=== PATIENT | male | born 1950 | race African-American/Black ===

== ENCOUNTER 2017-04-08 00:49 | Inpatient (IN) | payer MEDICARE ==
[2017-04-08] MEDS ORDERED: Cyclobenzaprine TAB* 10 MG PO ONE (01:27)
[2017-04-08] MEDS ORDERED: Aspirin TAB* 325 MG PO ONE (01:27)
[2017-04-08 02:20] LABS: Hematocrit 40 % (42-52); Mean Corpuscular HGB Conc 33 g/dl (31-36); Mean Corpuscular Hemoglobin 29 pg (27-31); Mean Corpuscular Volume 89 fL (80-94); Mean Platelet Volume 9 um3 (7.4-10.4); Red Blood Count 4.46 10^6/ul (4.0-5.4); Red Cell Distribution Width 14 % (10.5-15); White Blood Count 10.6 10^3/ul (3.5-10.8)
[2017-04-08 02:33] LABS: Albumin 3.9 g/dL (3.2-5.2); BUN/Creatinine Ratio 11.6 (8-20); Calcium 9.5 mg/dL (8.6-10.3); EGFR Non-African American 39.6 (>60); Globulin 3.4 g/dL (2-4); Potassium 3.9 mmol/L (3.5-5.0); Total Bilirubin 0.7 mg/dL (0.2-1.0); Total Protein 7.3 g/dL (6.4-8.9)
[2017-04-08 02:39] LABS: Troponin I 1.44 ng/mL (<0.04)
[2017-04-08] MEDS ORDERED: Heparin DRIP 25,000 UNITS(*) 25,000 UNITS/500 ML BAG IVPB SCH (02:53)
[2017-04-08] MEDS: Nitroglycerin TAB 0.4 MG* 0.4 MG TAB SL ONE ×3 (02:58→03:25)
[2017-04-08] MEDS ORDERED: Heparin VIAL(*) 5000 UNITS/ML VIAL (FIVE THOUSAND) IV SCH ×2 (03:00)
[2017-04-08] MEDS ORDERED: Nitroglycerin 2% OINT* 1 GM PAK TOPICAL ONE (03:03)
[2017-04-08] MEDS ORDERED: Heparin 2 UNITS/ML IVPREMIX* 2,000 ML IV ONE (03:17)
[2017-04-08] MEDS ORDERED: nitroGLYCERIN DRIP* 250 ML ONE (03:17)
[2017-04-08] MEDS ORDERED: Lidocaine 1% INJ* 10 MG/ML 30 ML SDV ONE (03:17)
[2017-04-08] MEDS ORDERED: fentaNYL* 50 MCG/ML 2 ML VIAL (100 MCG VIAL) ONE (03:17)
[2017-04-08] MEDS ORDERED: Midazolam* 1 MG/ML 5 ML VIAL (5 MG) ONE (03:17)
[2017-04-08] MEDS ORDERED: Iohexol 350 (CONTRAST) 200 ML MDV IV ONE (03:17)
[2017-04-08] MEDS ORDERED: Iodixanol* (CONTRAST) 320 MG/ML 100 ML SDV ONE (03:22)
[2017-04-08] MEDS ORDERED: Heparin(*) 1000 UNIT/ML 10 ML VIAL CATH LAB IV ONE (03:27)
[2017-04-08] MEDS ORDERED: VERAPAMIL 2.5 MG/ML 4 ML VIAL ONE (03:27)
[2017-04-08] MEDS ORDERED: Morphine INJ* 4 MG/ML 1 ML CARPUJECT IV ONE (03:33)
[2017-04-08] MEDS ORDERED: Acetaminophen TAB* 325 MG PO PRN (05:58)
[2017-04-08] MEDS ORDERED: Nitroglycerin TAB 0.4 MG* 0.4 MG TAB SL PRN (05:58)
[2017-04-08] MEDS ORDERED: oxyCODONE/Acetamin 5/325 MG* TAB PO PRN (05:58)
[2017-04-08] MEDS ORDERED: NS 0.9% 1000 ML* 1,000 ML IV SCH (06:00)
[2017-04-08] MEDS ORDERED: NS 0.9% 1000 ML* 1,000 ML IV PRN (06:13)
[2017-04-08 06:15] VITALS: BP 143/79
[2017-04-08] MEDS ORDERED: Metoprolol Tartrate TAB* 25 MG PO SCH (07:00)
[2017-04-08] MEDS ORDERED: glipiZIDE TAB.XL* 5 MG PO SCH (09:00)
[2017-04-08] MEDS ORDERED: Aspirin Low Dose CHEW TAB* 81 MG PO SCH (09:00)
--- NOTE | 2017-04-08 09:01 | RAD ---
Indication: Thoracic and LEFT shoulder pain. Comparison: July 29, 2015 Technique: Upright AP 0145 hours Report: Borderline inspiration with resulting mild crowding of the pulmonary markings. Prominent first costochondral calcifications noted. No alveolar consolidation, focal pulmonary lesion, pleural effusion, pneumothorax. Accounting for portable AP technique the heart, pulmonary vasculature, and mediastinal contours are unremarkable. Negative for free air beneath the diaphragm. IMPRESSION: No evidence for acute intrathoracic disease.
--- NOTE | 2017-04-08 09:03 | TRS ---
CONTINUATION ADDENDUM INCLUDED ON THIS REPORT CC: Dr. Moore; Dr. Ramos Suazo; Dr. Laura Ortega * HISTORY AND PHYSICAL AND TRANSFER SUMMARY: DATE OF ADMISSION AND TRANSFER: 04/08/17 PRIMARY CARE PHYSICIAN: Dr. Moore. AMBULATORY SERVICES REPRESENTATIVE: Dr. Ramos Suazo. VASCULAR SURGEON: Dr. Laura Ortega. DIAGNOSES: 1. Inferior wall non-ST elevation infarct. 2. Peripheral arterial disease, status post left pop-tib bypass. 3. Diabetes type 2. 4. Obesity. 5. Hypertension. 6. Remote history of cerebrovascular accident. 7. Obstructive sleep apnea. 8. Dyslipidemia. CONDITION ON TRANSFER: Stable. PROCEDURE: Diagnostic cardiac cath by Dr. Willett, right radial access with ultrasound guidance, not utilized because of heavy calcification and poor wire movement. Left common femoral access, bilateral selective coronary cineangiography, left heart catheterization, LV gram not done because of CKD stage 3. TRANSFER MEDICATIONS: 1. IV heparin 1100 units per hour. 2. IV nitro at 15 mcg per minute. And continued preadmission home medications which include: 1. Glipizide XL 20 mg daily. 2. Metformin 500 mg daily is on hold. 3. Zocor 20 mg daily has been changed to Lipitor 80 mg daily. 4. Aspirin 81 mg daily. 5. Lopressor 25 mg q.6. DISPOSITION: He is being transferred to Dr. Santillan at [facility], Cardiothoracic Surgery via ALS ambulance. HISTORY: A 67-year-old male with remote cardiac cath in 2002 at [place], report not available. He had a catheterization here on 05/28/07 for inferior wall ischemia on imaging, per report that revealed relatively small vessel disease, access was right common femoral. Normal LV function with EF of 55%, the diagonal was described as having 60% stenosis, circumflex was described as codominant with 80% distal stenosis, the marginal had 80% stenosis at a bifurcation, the circumflex PDA was described as having severe disease, but was very small. The RCA was described as unremarkable. We are not able to access those images on the AXA seismograph observer. He had a RAYNA scan in July 2015, which reported a small inferolateral basilar mixed defect with normal LV systolic function. He has been doing well without symptoms at followup with Dr. Suazo most recently in January. He apparently is noncompliant with his diabetic diet. Approximately at 2000 hours yesterday, he had the onset of left shoulder pain radiating into his left arm and left side of his neck, which had many features of musculoskeletal discomfort. He presented to the ER, EKG at 0211 hours had a wandering baseline, with less than [address] elevation. There were some reciprocal changes in I and aVL. When troponin came back elevated at 1.44 repeat EKG at 0244 hours showed slightly more evident inferior and lateral lead V6 J point and ST elevation was still less than 1 mm not meeting criteria for ST elevation infarct. He was still symptomatic at the time builder's labourer was called. When I saw him in the ER he was still complaining of moderate left shoulder discomfort, was not in distress. He has had previous left popliteal tibial bypass by Dr. Boyer at [facility], last SERGIO is this December. The right toe brachial index was 0.28, the left toe brachial index was 0.3 with a left posterior tibial SERGIO normal at 1.06. He does not claudicate. He has had some peripheral edema, denies heart failure symptoms, palpitations or syncope. PAST MEDICAL HISTORY: 1. PAD as above. 2. Diabetes type 2. 3. Hypertension. 4. Remote CVA in 2005 according to his records involving the cerebellum. 5. Obstructive sleep apnea. 6. Apparently dietary noncompliance. PREHOSPITAL MEDICATIONS: There is some conflict between the office record from January and the ER record. Per Dr. Suazo's office note, he was at that time in January on: 1. Metoprolol succinate 25 mg daily. 2. Aspirin 81 mg daily. 3. Enalapril 2.5 mg daily. 4. Glucotrol XL 10 mg 2 q.a.m. 5. Metformin 500 mg daily. 6. Lipitor 40 mg daily. ER admission med list does not mention the aspirin or Toprol-XL and lists Keflex 500 mg q.i.d. as well as collagenase ointment. ALLERGIES: None, although there is a question of SHELLFISH allergy in the past and he was premedicated for his 2006 cath without allergic reaction. FAMILY HISTORY: Positive for premature coronary disease with a brother dying suddenly in his 50s. SOCIAL HISTORY: He is a nonsmoker. PHYSICAL EXAMINATION: GENERAL: He was not in distress, complaining of moderate left shoulder discomfort. CONTINUATION ADDENDUM: PHYSICAL EXAMINATION: Vital Signs: Presenting BP 152/65, heart rate 60s to 80s sinus rhythm. He had a few coarse rhonchi on the right side, no rales, no wheezing. Neck: Carotids palpable. JVD normal. HEENT: Unremarkable without xanthelasma, scleral injection, jaundice. EOMs normal. Cranial nerves grossly intact. Cardiac Exam: [place] and RV not palpable, normal S1, S2, no audible gallop, murmur, or rub. Abdomen: Obese, nontender. Normal bowel sounds. Aorta not palpable. Liver not palpable. No bruits. Right radial pulse palpable, but diminished. Right brachial normal. Blood pressure right and left arms equal. Right femoral pulse not palpable. Left femoral pulse palpable. No bruit. Pedal pulses not palpable. He has a vein harvest incision , left leg over the greater saphenous. He has mild edema bilaterally. He has had previous toe amputations, left foot. Pedal pulses are not palpable. Neuro : Grossly intact. Psych: He is oriented and appropriate. DIAGNOSTIC STUDIES/LAB DATA: CBC: Hemoglobin 13.2, hematocrit 41, normal platelet count. BMP: Normal potassium at 3.9, creatinine 1.72 with most recent in October of 1.48. Glucose 189. Last hemoglobin A1c on November 11 was 7.8. His LFTs are normal. First troponin elevated at 1.44. Lipids in October; total cholesterol 152, LDL 71, HDL 69.4, triglycerides 56, presumably on his current dose of Lipitor. EKG as above. Chest x-ray, portable film by my review, no acute infiltrate or heart failure. IMPRESSION: Inferior wall non-ST elevation infarct. He is known to have branch disease of the diagonal marginal and distal circumflex by prior cath. He now presents with an inferior non-ST elevation infarct, not meeting criteria for ST elevation infarct. Nuclear imaging a year and a half ago showed an infrabasilar mixed defect. I discussed with him that depending on the size of his distal vessels, we may or may not be able to revascularize. We discussed catheterization, procedure risks. I will attempt a right radial access after ultrasound evaluation. If not feasible, we will utilize the left common femoral. Because of his renal insufficiency, we will minimize contrast. HOSPITAL COURSE: He underwent a cardiac cath. I was easily able to enter the right radial artery with ultrasound guidance, the artery was 1.7 mm to 2 mm in diameter, but very heavily calcified. Even though I had pulsatile flow, it was not possible to feed the 0.021 wire without resistance, fairly typical for heavily calcified radial arteries. The access site was therefore abandoned, manual pressure was held for 5 minutes. Reverse Barbeau postprocedure was still A. Access was then left common femoral with a 6-Irish sheath. Bilateral selective coronary cineangiography and left heart catheterization were performed. His left main is normal, his LAD has proximal 70% to 80% stenosis, the fairly small sized diagonal had 60% stenosis. Imaging was somewhat suboptimal because of his truncal obesity and limitation of contrast to 5 cc per injection. His circumflex has a first marginal, which had proximal 90% stenosis at a bifurcation point, the lower side branch is essentially occluded. After the marginal, the mid circumflex has an 80% to 90% stenosis before supplying the distal circumflex, which consists of a trifurcated small posterolateral. I do not see a clear circumflex PDA. The RCA is co-dominant, the PDA had proximal 80% stenosis. There was no aortic valve gradient on pullback, LVEDP was approximately 20. LV gram was not performed to minimize contrast load. With IV nitroglycerin and resumption of IV heparin, he was pain free. A repeat EKG in the builder's labourer showed resolution of the slight inferolateral ST elevation. The sheath was secured in his left common femoral as he is on heparin, arrangements were made to transfer him to [facility] at his choice for evaluation for bypass grafting for three-vessel disease with diffuse lengthy and bifurcation disease with three-vessel involvement. [id number]/[facility] #: [id number]/[facility]PS #: [id number] [facility]
--- NOTE | 2017-04-08 12:02 | TRS ---
HISTORY AND PHYSICAL AND TRANSFER SUMMARY:* ADDENDUM: PHYSICAL EXAMINATION: Vital Signs: Presenting BP 152/65, heart rate 60s to 80s sinus rhythm. He had a few coarse rhonchi on the right side, no rales, no wheezing. Neck: Carotids palpable. JVD normal. HEENT: Unremarkable without xanthelasma, scleral injection, jaundice. EOMs normal. Cranial nerves grossly intact. Cardiac Exam: [place] and RV not palpable, normal S1, S2, no audible gallop, murmur, or rub. Abdomen: Obese, nontender. Normal bowel sounds. Aorta not palpable. Liver not palpable. No bruits. Right radial pulse palpable, but diminished. Right brachial normal. Blood pressure right and left arms equal. Right femoral pulse not palpable. Left femoral pulse palpable. No bruit. Pedal pulses not palpable. He has a vein harvest incision , left leg over the greater saphenous. He has mild edema bilaterally. He has had previous toe amputations, left foot. Pedal pulses are not palpable. Neuro : Grossly intact. Psych: He is oriented and appropriate. DIAGNOSTIC STUDIES/LAB DATA: CBC: Hemoglobin 13.2, hematocrit 41, normal platelet count. BMP: Normal potassium at 3.9, creatinine 1.72 with most recent in October of 1.48. Glucose 189. Last hemoglobin A1c on November 11 was 7.8. His LFTs are normal. First troponin elevated at 1.44. Lipids in October; total cholesterol 152, LDL 71, HDL 69.4, triglycerides 56, presumably on his current dose of Lipitor. EKG as above. Chest x-ray, portable film by my review, no acute infiltrate or heart failure. IMPRESSION: Inferior wall non-ST elevation infarct. He is known to have branch disease of the diagonal marginal and distal circumflex by prior cath. He now presents with an inferior non-ST elevation infarct, not meeting criteria for ST elevation infarct. Nuclear imaging a year and a half ago showed an infrabasilar mixed defect. I discussed with him that depending on the size of his distal vessels, we may or may not be able to revascularize. We discussed catheterization, procedure risks. I will attempt a right radial access after ultrasound evaluation. If not feasible, we will utilize the left common femoral. Because of his renal insufficiency, we will minimize contrast. HOSPITAL COURSE: He underwent a cardiac cath. I was easily able to enter the right radial artery with ultrasound guidance, the artery was 1.7 mm to 2 mm in diameter, but very heavily calcified. Even though I had pulsatile flow, it was not possible to feed the 0.021 wire without resistance, fairly typical for heavily calcified radial arteries. The access site was therefore abandoned, manual pressure was held for 5 minutes. Reverse Barbeau postprocedure was still A. Access was then left common femoral with a 6-Mongolian sheath. Bilateral selective coronary cineangiography and left heart catheterization were performed. His left main is normal, his LAD has proximal 70% to 80% stenosis, the fairly small sized diagonal had 60% stenosis. Imaging was somewhat suboptimal because of his truncal obesity and limitation of contrast to 5 cc per injection. His circumflex has a first marginal, which had proximal 90% stenosis at a bifurcation point, the lower side branch is essentially occluded. After the marginal, the mid circumflex has an 80% to 90% stenosis before supplying the distal circumflex, which consists of a trifurcated small posterolateral. I do not see a clear circumflex PDA. The RCA is co-dominant, the PDA had proximal 80% stenosis. There was no aortic valve gradient on pullback, LVEDP was approximately 20. LV gram was not performed to minimize contrast load. With IV nitroglycerin and resumption of IV heparin, he was pain free. A repeat EKG in the laborer shaft sinking showed resolution of the slight inferolateral ST elevation. The sheath was secured in his left common femoral as he is on heparin, arrangements were made to transfer him to [facility] at his choice for evaluation for bypass grafting for three-vessel disease with diffuse lengthy and bifurcation disease with three-vessel involvement. [id number]/[facility] #: [id number] [facility]
[2017-04-08] MEDS ORDERED: Atorvastatin* 80 MG TAB PO SCH (17:00)
--- NOTE | 2017-04-11 03:17 | CATH ---
CC: Dr. Moore; Dr. Ramos Suazo; Dr. Santillan at [place]; Dr. Ortega at [facility] * CATHETERIZATION REPORT: DATE OF PROCEDURE: 04/08/17 - ROOM #[id number] PRIMARY CARE PHYSICIAN: Dr. Moore SENIOR INFORMATICA ETL DEVELOPER: Dr. Ramos Suazo PROCEDURES: Left common femoral artery access, bilateral selective coronary cineangiography, left heart catheterization. Right radial artery access with ultrasound, not utilized. HISTORY: A 67-year-old male with prior cath in 2006 for inferior wall ischemia reported, right common femoral artery access, 60% diagonal stenosis, codominant circumflex with 80% distal stenosis, 80% marginal stenosis, and severe circumflex PDA stenosis. LVEF 55%, he was treated medically. The RCA was at that time reported as normal. July 2015, RAYNA scan showed a basilar inferolateral mixed defect with normal LV function. He has had left popliteal to tibial bypass by Dr. Ortega. He presented with an inferior wall ST elevation infarct, was brought to the dental laboratory worker emergently. He had a palpable left femoral pulse, no palpable right femoral pulse. ACCESS: Right radial artery with ultrasound guidance, demonstrated a radial artery 1.7 mm to 2 mm in diameter, but with heavy circumferential intimal calcification. He was easily entered with a micropuncture needle, but the microwire would not easily pass up the radial even though there was brisk pulsatile arterial flow, likely due to resistance from heavy calcification. The right radial was therefore abandoned, 5 minutes of manual compression was held. Subsequent reverse Barbeau was A. The left femoral artery was then used for access after local anesthesia. SHEATH: 6F. MEDICATIONS: 1. Subcu lidocaine. 2. IV Versed. 3. IV fentanyl. 4. IV Solu-Medrol. 5. Benadryl for questionable history of CONTRAST allergy with premedication at cath in 2006. 6. IV nitroglycerin 15 mcg per minute. 7. Heparin 1100 units per hour resumed post cath after sheath was secured. DIAGNOSTIC CATHETERS: 6FL4, 6FR4, 6FL3.5. HEMODYNAMICS: Initial BP 156/79, LV 149/16-17, no aortic valve gradient on pullback. ANGIOGRAPHY: Left common femoral artery: Sheath entry in segment 2, there is no stenosis. Left main: The left main is short, has no stenosis. LAD: The LAD is heavily calcified, has a proximal near ostial 60% stenosis, distal LAD has scattered nonobstructive plaquing. There is a mid diagonal, which has 60 or so percent stenosis. Contrast injections were limited to 5 cc because of his CKD stage 3. Circumflex: The circumflex is moderate, supplies a moderate first marginal which has an 80% to 90% stenosis at a bifurcation, the lower side branch is occluded, the upper side branch has an 80% ostial stenosis. The lower branch feels via left-to- left collaterals. The AV groove circumflex continuation has an 80% to 90% stenosis, the distal circumflex consists of 3 very small posterolaterals, I do not see a discrete circumflex PDA. RCA: The RCA is moderate, dominant or codominant, the PDA has proximal 80% stenosis. CONCLUSION: Three-vessel disease with bifurcation disease, diffuse disease. With medical management in the dental laboratory worker, he became pain free, ST elevation resolved on 12-lead EKG. Sheath was secured, he was transferred to [facility] for evaluation for bypass grafting, on IV nitroglycerin and IV heparin, hemodynamically stable and pain free. [id number]/[facility] #: [id number] [facility]
== END 2017-04-08 06:11 | disposition short-term general hospital (02) | DRG 282 ==
LOC: ED 00:49 → CHICATH 03:39 → ICU 05:20
PROVIDERS: ADMIT Internal Medicine Cardiovascular Disease; ATTEND Internal Medicine Cardiovascular Disease
PROC: B211YZZ Fluoroscopy of Multiple Coronary Arteries using Other Contrast (ICD-10-PCS; 2017-04-08)
PROC: 4A023N7 Measurement of Cardiac Sampling and Pressure, Left Heart, Percutaneous Approach (ICD-10-PCS; principal; 2017-04-08 07:15)
DX: I21.4 Non-ST elevation (NSTEMI) myocardial infarction (principal); E11.22 Type 2 diabetes mellitus with diabetic chronic kidney disease; I13.10 Hypertensive heart and chronic kidney disease without heart failure, with stage 1 through stage 4 chronic kidney disease, or unspecified chronic kidney disease; N18.3 Chronic kidney disease, stage 3 (moderate); E66.9 Obesity, unspecified; G47.33 Obstructive sleep apnea (adult) (pediatric); E78.5 Hyperlipidemia, unspecified; Z68.36 Body mass index [BMI] 36.0-36.9, adult; Z79.84 Long term (current) use of oral hypoglycemic drugs; Z79.82 Long term (current) use of aspirin; Z79.899 Other long term (current) drug therapy; Z82.49 Family history of ischemic heart disease and other diseases of the circulatory system
CPT/HCPCS: 36415; 71010; 80053; 84484; 85025; 85730; 93005; 99156; 99157; A9270-GY; C1887; J1644; J2001; J2250; J3010

== ENCOUNTER 2019-08-25 09:19 | Emergency (ER) | payer MEDICARE ==
--- OUTSIDE RECORDS SUMMARY | 2019-08-25 09:26 | XMS REPORT | Continuity of Care Document ---
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 Onset: 08/19/2014 Diabetic neuropathy Onset: 07/07/2014 Social History Type Date Description Comments Sex Unknown Allergies, Adverse Reactions, Alerts Description No Known Drug Allergies Medications Active Medications SIG Qnty Indications Ordering Date Provider Enalapril Maleate take 1 tablet by 90tabs I10 Micki Villalta, 08/07/2019 5mg mouth daily MD Tablets Clopidogrel Bisulfate Take One Tablet 30tabs Micki Villalta, 07/11/2019 By Mouth Every 75mg Tablets Day Humulin 70/30 Kwikpen inject 10units Unknown 11/01/2018 Subcutaneous; 25 (70-30)100Unit/ML units am and 10 Supn units pm Metoprolol Tartrate 1 twice daily 180tabs MIL Moore 08/02/2018 oral 25mg Tablets Atorvastatin Calcium Take One Tablet 30tabs Micki Villalta, 05/01/2018 By Mouth Every 80mg Tablets Day Metformin HCL ER 2 daily oral 180tabs Pardeep Jauregui MD 04/10/2018 750mg Tablets ER 24HR Glipizide XL Oral; Take Two 180tabs Unknown 10/15/2017 10mg Tablets By Mouth Tablets ER 24HR Once Daily In The Morning Aspirin Adult Low 1 daily Oral Unknown 04/18/[address] Andres Use as Directed 100units Unknown 10/26/2010 Misc External History Medications Clopidogrel Bisulfate Oral; Take One 30tabs Unknown 03/10/2019 - 2018 75mg Tablet By Mouth Tablets Every Day Immunizations CPT Code Status Date Vaccine Lot # [id number] Given 07/19/2015 Tdap - Boostrix/Adacel [id number] Refused 04/03/2018 Influenza Virus Vaccine, Quadrivalent, Split, Im Use 0.25ML [id number] Refused 09/19/2017 Hep B 11-15yr, Recombivax 1.0ml dose only [id number] Refused 07/07/2014 Pneumovax - for >=2years - PPSV23 [id number] Refused 07/07/2014 Influenza Virus Vaccine, Quadrivalent, Split, Im Use 0.25ML [id number] Refused 07/07/2014 Prevnar 13 [id number] Refused 05/30/2013 Influenza Virus Vaccine, Quadrivalent, Split, Im Use 0.25ML 89998 Refused 05/17/2012 Influenza Virus Vaccine, Quadrivalent, Split, Im Use 0.25ML [id number] Refused 01/02/2012 Influenza Virus Vaccine, Quadrivalent, Split, Im Use 0.25ML Vital Signs Date Vital Result Comment 08/07/2019 8:54am BP Systolic 152 mmHg BP Diastolic 68 mmHg BP Systolic Recheck 142 mmHg BP Diastolic Recheck 88 mmHg Weight 219.00 lb Heart Rate 58 /min Body Temperature 97.2 F O2 % BldC Oximetry 99 % 05/07/2019 9:33am BP Systolic 138 mmHg BP Diastolic 64 mmHg Height 69 inches 5'9" Weight 222.00 lb Heart Rate 68 /min Body Temperature 98.2 F O2 % BldC Oximetry 98 % BMI (Body Mass Index) 32.8 kg/m2 Right Visual Acuity Distance 20/30 Left Visual Acuity Distance 20/40 Both Visual Acuity Distance 20/30 Results Test Acquired Date Facility Test Result H/L Range Note CBC Auto 05/07/2019 [facility] White Blood 6.3 10^3/uL Normal 3.5-10.[address] [place], [place] [id number] [phone] Red Blood Count 4.54 10^6/uL Normal 4.18-5.48 Hemoglobin 13.6 g/dL Low 14.0-18.0 Hematocrit 40 % Low 42-52 Mean Corpuscular Volume 89 fL Normal 80-94 Mean Corpuscular Hemoglobin 30 pg Normal 27-31 Mean Corpuscular HGB Conc 34 g/dL Normal 31-36 Red Cell Distribution Width 14 % Normal 10-15 Platelet Count 161 10^3/uL Normal 150-450 Mean Platelet Volume 9.8 fL Normal 7.4-10.4 Abs Neutrophils 3.2 10^3/uL Normal 1.5-7.7 Abs Lymphocytes 2.4 10^3/uL Normal 1.0-4.8 Abs Monocytes 0.5 10^3/uL Normal 0-0.8 Abs Eosinophils 0.2 10^3/uL Normal 0-0.6 Abs Basophils 0.0 10^3/uL Normal 0-0.2 Abs Nucleated RBC 0.0 10^3/uL Granulocyte % 51.7 % Lymphocyte % 37.6 % Monocyte % 8.0 % Eosinophil % 2.5 % Basophil % 0.2 % Nucleated Red Blood Cells % 0.2 Lipid Profile 05/07/2019 [facility] Triglycerides 99 mg/dL 1 (Trig/Chol/HDL) [address] [place] [address] [phone] Cholesterol 137 mg/dL 2 HDL Cholesterol 61.6 mg/dL 3 LDL Cholesterol 56 mg/dL 4 Comp Metabolic 05/07/2019 [facility] Sodium 140 mmol/L Normal 135-[address] [place] [address] [phone] Potassium 4.1 mmol/L Normal 3.5-5.0 Chloride 104 mmol/L Normal 101-111 Co2 Carbon Dioxide 29 mmol/L Normal 22-32 Anion Gap 7 mmol/L Normal 2-11 Glucose 127 mg/dL High 70-100 Blood Urea Nitrogen 19 mg/dL Normal 6-24 Creatinine 1.60 mg/dL High 0.67-1.17 BUN/Creatinine Ratio 11.9 Normal 8-20 Calcium 9.4 mg/dL Normal 8.6-10.3 Total Protein 7.0 g/dL Normal 6.4-8.9 Albumin 3.9 g/dL Normal 3.2-5.2 Globulin 3.1 g/dL Normal 2-4 Albumin/Globulin Ratio 1.3 Normal 1-3 Total Bilirubin 0.60 mg/dL Normal 0.2-1.0 Alkaline Phosphatase 95 U/L Normal 34-104 Alt 22 U/L Normal 7-52 Ast 20 U/L Normal 13-39 Egfr Non- 42.8 >60 Egfr 51.8 >60 5 Laboratory test 05/07/2019 [facility] Hemoglobin A1c 8.9 % High 4.0-5.[address] ([facility] HGB) [place], [place] [id number] [phone] [facility] Urine 05/07/2019 [facility] Urine, 150 Microalbumin/Cre ( )- - Microalbumin at R Urine, Creatinine, Random 200 Microalb/CR Ratio 30 - 300 1 Desirable: <150 Borderline High: 150-199 High: 200-499 Very High: >500 2 Desirable: <200 Borderline High: 200-239 High: >239 3 Low: <40 Desirable: 40-60 High: >60 4 Desirable: <100 Near Optimal: 100-129 Borderline High: 130-159 High: 160-189 Very High: >189 5 Because ethnic data is not always readily available, this report includes an eGFR for both -Americans and non- Americans. The National Kidney Disease Education Program (NKDEP) does not endorse the use of the MDRD equation for patients that are not between the ages of 18 and 70, are , have extremes of body size, muscle mass, or nutritional status, or are non- or non-. According to the National Kidney Foundation, irrespective of diagnosis, the stage of the disease is based on the level of kidney function: Stage Description GFR(mL/min/1.73 m(2)) 1 Kidney damage with normal or decreased GFR 90 2 Kidney damage with mild decrease in GFR 60-89 3 Moderate decrease in GFR 30-59 4 Severe decrease in GFR 15-29 5 Kidney failure <15 (or dialysis) 6 Therapeutic target for the treatment of diabetes mellitus patients is <7% HBA1C, and in selective patients <6.0%. Please refer to [place] Diabetes Association diabetic care guidelines for further information. Procedures Date Code Description Status 05/07/2019 30657 Visual Screening Test Of Visual Acuity, Quantitative, Completed Bilateral Medical Devices Description No Information Available Encounters Type Date Location Provider Dx Diagnosis Office Visit 08/07/2019 [facility] Tony Villalta MD I10 Essential (primary ) 9:30a hypertension E11.9 Type 2 diabetes mellitus without complications Assessments Date Code Description Provider 08/07/2019 I10 Essential (primary) hypertension Micki Villalta MD 08/07/2019 E11.9 Type 2 diabetes mellitus without complications Micki Villalta MD 05/07/2019 Z68.32 Body mass index (BMI) 32.0-32.9, adult Micki Villalta MD 05/07/2019 I10 Essential (primary) hypertension Micki Villalta MD 05/07/2019 Z13.1 Encounter for screening for diabetes mellitus Micki Villalta MD 05/07/2019 Z13.220 Encounter for screening for lipoid disorders Micki Villalta MD 05/07/2019 Z00.00 Encounter for general adult medical examination Micki Villalta MD without abnormal findings 05/07/2019 Z01.00 Encounter for examination of eyes and vision Micki Villalta MD without abnormal findings 05/07/2019 Z13.31 Encounter for screening for depression Micki Villalta MD Plan of Treatment Future Appointment(s):11/06/2019 9:15 am - Micki Villalta MD at [facility] Main2019 - Micki Villalta MDI10 Essential (primary) hypertensionNew Medication: Enalapril Maleate 5 mg - take 1 tablet by mouth [id number] Type 2 diabetes mellitus without complications Functional Status Description No Information Available Mental Status Description No Information Available Referrals Description No Information Available
--- OUTSIDE RECORDS SUMMARY | 2019-08-25 09:26 | XMS REPORT | Summary of Care ---
:1950 Author Organization [facility] Address [address] [place] [address] Care Team Providers Name Role Phone Tami Moore MD Primary Care Provider Reason for Visit Reason Comments Follow-up Encounter Details Date Type Department Care Team Description 08/22/2019 Office Visit [facility], HOST artery disease) Department of Surgery, [facility] (Primary Dx) Division of Vascular [address] [facility] [place] [address] Endovascular Services [phone] [place] [address] Allergies Active Allergy Reactions Severity Noted Date Comments Mustard Seed Other (See Comments) 08/20/2015 Sick feeling documented as of this encounter (statuses as of 08/22/2019) Medications Medication Sig Dispensed Refills Start End Status Date Date glipiZIDE (GLUCOTROL) Take 10 mg by 0 Active 10 MG 24 hr mouth daily. tabletIndications: Indications: Type Type 2 Diabetes 2 Diabetes Mellitus enalapril (VASOTEC) Take 2.5 mg by 0 Active 2.5 MG mouth daily. tabletIndications: Indications: High Hypertension Blood Pressure aspirin 81 MG Take 81 mg by 0 Active tabletIndications: mouth daily. Acute Myocardial Indications: Infarction Heart Attack metformin (GLUCOPHAGE) Take 750 mg by 0 Active 500 MG mouth daily with tabletIndications: breakfast Type 2 Diabetes Mellitus atorvastatin (LIPITOR) Take 80 mg by 0 Active 80 MG mouth daily tabletIndications: cholesterol metoprolol (LOPRESSOR) Take 25 mg by 0 Active 25 MG mouth Two Times tabletIndications: Daily. Hypertension Indications: High Blood Pressure clopidogrel (PLAVIX) Take 75 mg by 0 Active 75 MG tablet mouth daily Insulin Glargine Inject into the 0 Active (BASAGLAR KWIKPEN SC) skin Glucose Blood In Vitro Accu-Chek Sandi Plus test strips 0 Active Strip TEST ONCE DAILY Insulin NPH Isophane & Novolin 70/30 U-100 Insulin 100 unit/mL subcutaneous suspension 0 Active Regular (70-30) 100 inject 20u at breakfast and 10u at supper or as directed up to 60u TDD. Dx E11.65, last visit 08/13/18 UNIT/ML Subcutaneous Suspension (NOVOLIN 70/30) hydroCHLOROthiazide 25 Take 25 mg by 0 04/12/20 Active MG Oral Tablet mouth 17 (HYDRODIURIL) Insulin NPH (Human) Humulin N NPH U-100 Insulin (isophane susp) 100 unit/mL subcutaneous 0 Active (Isophane) 100 UNIT/ML Inject 15 units every day by subcutaneous route in the morning. Subcutaneous Suspension (HUMULIN N) NovoLIN N ReliOn 100 INJECT 15 UNITS 0 07/24/19 Active UNIT/ML Subcutaneous SUBCUTANEOUSLY 20 Suspension ONCE DAILY IN THE MORNING Glucose Blood In Vitro Accu-Chek Sandi Plus test strips 0 Strip once daily dxe11.65 last appt 01/29/182019 (Duplicate) documented as of this encounter (statuses as of 08/22/2019) Active Problems Problem Noted Date PVD (peripheral vascular disease) 07/31/2016 h/o Hemorrhagic stroke -- 1998 08/21/2015 Sleep apnea 08/21/2015 Overview: no CPAP H/O: stroke 1995 with residual effects -- Left sided weakness 08/21/2015 Overview: left sided sl weakness PAD (peripheral artery disease) 08/21/2015 Diabetes mellitus type II, uncontrolled 07/27/2015 Hypertension 07/27/2015 Hyperlipidemia associated with type 2 diabetes mellitus 07/27/2015 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 07/22 documented as of this encounter (statuses as of 08/22/2019) Resolved Problems Problem Noted Date Resolved Date Atherosclerosis of [place] artery of left leg with ulceration 07/28/201512/06 documented as of this encounter (statuses as of 08/22/2019) Social History Tobacco Use Types Packs/Day Years Used Date Never Smoker Smokeless Tobacco: Never Used Alcohol Use Drinks/Week oz/Week Comments No 0 Standard drinks or equivalent 0.0 history Sex Assigned at Date Recorded Not on file Job Start Date Occupation Industry Not on file Not on file Not on file Travel History Travel Start Travel End No recent travel history available. documented as of this encounter Last Filed Vital Signs Vital Sign Reading Time Taken Comments Blood Pressure 147/74 08/22/2019 10:03 AM EST Pulse 62 08/22/2019 10:03 AM EST Temperature 36.7 08/22/2019 10:03 AM EST C (98 F) Respiratory Rate 18 08/22/2019 10:03 AM EST Oxygen Saturation 99% 08/22/2019 10:03 AM EST Inhaled Oxygen Concentration - - Weight 99.3 kg (219 lb) 08/22/2019 10:03 AM EST Height 175.3 cm (5' 9") 08/22/2019 10:03 AM EST Body Mass Index 32.34 08/22/2019 10:03 AM EST documented in this encounter Progress Notes Anel Ribeiro, HOST - 08/22/2019 10:00 AM EST Reason for Visit: 1 year follow up HPI: Geovanni Bal is a 69 y.o.male very well know to our service with a history of DM and PAD associated with multiple vascular interventions. He is s/p left below -knee popliteal to dorsalis pedis artery bypass with reverse saphenous vein 08/20; s/p debridement of the left 3rd toe and 5th toe amputation with resection of the plantar skin under the 5th metatarsal head on 08/23/15; s/p left 3rd toe partial amputation, left 5th metatarsal bone resection with closure on 10/18/15; s/p left 3rd toe amputation on 02/11/16. On 07/31/16 he underwent an angiogram for elevated velocities within his graft which showed an occluded bypass graft. He was asymptomatic at the time so no further intervention was required. He follows up today for yearly surveillance as part of the [facility] CLI Trial. He reports that he is doing well. He states he fell on some ice yesterday and he is a little sore. He did not go to the [facility]. He denies hitting his head. She denies chest pain, back pain or abdominal pain. In regard to his lower extremties he feels he can walk as far as he needs to without having to stop and rest. He denies any presence of lower extremity rest pain, pain with ambulation or new ulcerations. He denies any surgeries or hospitalizations since he was last seen 1 year ago. Past Medical History: Diagnosis Date Cataract Diabetes mellitus Hemorrhagic stroke approx 1997 Hyperlipidemia Hypertension Sleep apnea no CPAP Stroke 1995 left sided sl weakness Past Surgical History: Procedure Laterality Date CATARACT EXTRACTION Left 2011 COLONOSCOPY OK AMPUTATION TOE,MT-P JT Left 02/11/2016 Procedure: LEFT THIRD TOE AMPUTATION; Surgeon: Laura Ortega MD; Location: OR ; Service: Vascular; Laterality: Left; OK DEBRIDEMENT, SKIN, SUB-Q TISSUE,=<20 SQ CM Left 08/23/2015 Procedure: DEBRIDEMENT LEFT 3RD and 5TH TOE and 5th toe amputation; Surgeon: Laura Ortega MD; Location: OR ; Service: General; Laterality: Left; OK DEBRIDEMENT, SKIN, SUB-Q TISSUE,MUSCLE,BONE,=<20 SQ CM Left 2015 Procedure: Left fifth metatarsal resection, debridment and closure, left third toe partial amputation.; Surgeon: Laura Ortega MD; Location: OR [facility]; Service: General; Laterality: Left; OK REVASCULARIZATION ILIAC ARTERY ANGIOP 1ST VSL Left 07/31/2016 Procedure: REVASCULARIZATION,ENDOVASCULAR,OPEN OR PERCUTANEOUS ARTERY, UNILATERAL,INITIAL VESSEL;WITH TRANSLUMINAL ANGIOPLASTY; Surgeon: Laura Ortega MD; Location: OR [facility]; Service: Vascular; Laterality: Left; OK SLCTV CATHJ EA 1ST ORD ABDL PEL/LXTR ART BRNCH Left 07/28/2015 Procedure: Left leg angiogram; Surgeon: Laura Ortega MD; Location: OR [facility]; Service: Vascular; Laterality: Left; OK VEIN BYPASS GRAFT,FEM-TIBIAL Left 08/20/2015 Procedure: LEFT POPLITEAL TO DORSALIS PEDIS BYPASS WITH SAPHENOUS VEIN ; Surgeon: Laura Ortega MD; Location: OR ; Service: Vascular; Laterality: Left; ROTATOR CUFF REPAIR Right TOE SURGERY Medications: Home Medications Medication Sig aspirin 81 MG tablet Take 81 mg by mouth daily. Indications: Heart Attack atorvastatin (LIPITOR) 80 MG tablet Take 80 mg by mouth daily clopidogrel (PLAVIX) 75 MG tablet Take 75 mg by mouth daily enalapril (VASOTEC) 2.5 MG tablet Take 2.5 mg by mouth daily. Indications: High Blood Pressure glipiZIDE (GLUCOTROL) 10 MG 24 hr tablet Take 10 mg by mouth daily. Indications : Type 2 Diabetes Glucose Blood In Vitro Strip Accu-Chek Sandi Plus test strips TEST ONCE DAILY hydroCHLOROthiazide 25 MG Oral Tablet (HYDRODIURIL) Take 25 mg by mouth Insulin Glargine (BASAGLAR KWIKPEN SC) Inject into the skin Insulin NPH (Human) (Isophane) 100 UNIT/ML Subcutaneous Suspension (HUMULIN N) Humulin N NPH U-100 Insulin (isophane susp) 100 unit/mL subcutaneous Inject 15 units every day by subcutaneous route in the morning. Insulin NPH Isophane & Regular (70-30) 100 UNIT/ML Subcutaneous Suspension ( NOVOLIN 70/30) Novolin 70/30 U-100 Insulin 100 unit/mL subcutaneous suspension inject 20u at breakfast and 10u at supper or as directed up to 60u TDD. Dx E11.65, last visit 08/13/18 metformin (GLUCOPHAGE) 500 MG tablet Take 750 mg by mouth daily with breakfast metoprolol (LOPRESSOR) 25 MG tablet Take 25 mg by mouth Two Times Daily. Indications: High Blood Pressure NovoLIN N ReliOn 100 UNIT/ML Subcutaneous Suspension INJECT 15 UNITS SUBCUTANEOUSLY ONCE DAILY IN THE MORNING Glucose Blood In Vitro Strip Accu-Chek Sandi Plus test strips once daily dxe11.65 last appt 01/29/18 Allergies: Mustard seed Family History Problem Relation Age of Onset Aneurysm Mother COPD Father No Known Problems Sister Heart disease Brother Diabetes Sister No Known Problems Sister No Known Problems Sister Diabetes Sister Aneurysm Sister Diabetes Brother Cancer Brother unknown type No Known Problems Son No Known Problems Daughter No Known Problems Daughter No Known Problems Daughter Anesth problems Neg Hx Social History Tobacco History Smoking Status Never Smoker Smokeless Tobacco Use Never Used Alcohol History Alcohol Use Status No Comment history Drug Use Drug Use Status No Sexual Activity Sexually Active Not Asked Activities of Daily Living Not Asked ROS: Constitutional: Denies fever, chills, fatigue, and unexpected weight change HEENT: Denies visual difficulties, hearing is good Respiratory: Denies cough,shortness of breath, wheezing, chronic cough or sputum production, no hemoptysis Cardiovascular: Denies chest pain or pressure, palpitations, or leg swelling Gastrointestinal: Denies nausea, vomiting, abdominal pain, diarrhea, constipation or blood in the stool Genitourinary: Denies dysuria, urgency, frequency, hematuria, and difficulty urinating Skin: Denies rashes or lesions Extremities/Musculoskeletal: Denies muscle weakness, numbness, or back pain Neurological: Denies dizziness, seizures, difficulty with speech, weakness, or numbness. Negative for TIA or CVA Hematological: Denies bruising easily or anemia Vitals: Vitals: 08/22/19 1003 BP: 147/74 BP Location: Left arm Pulse: 62 Resp: 18 Temp: 36.7 C (98 F) TempSrc: Oral SpO2: 99% Weight: 99.3 kg (219 lb) Height: 1.753 m (5' 9") Physical Exam: General appearance: Alert, appears stated age, cooperative and no distress, ambulated independently into the exam room. Head: Normocephalic, without obvious abnormality, atraumatic Eyes: Negative findings: conjunctivae and sclerae normal Lungs: Respirations unlabored on room air. Lungs CTA bilaterally. Cardiac: Normal rate and rhythm. Normal S1, S2. No murmurs. No carotid bruits auscultated. Extremities: No edema noted of the BLE. Bilateral feet are warm with no cyanosis or rubor. No tissueloss. Motor and sensory function intact. The left 3rd toe amputation is healed. The 5th toe is healed with a thick callused scab over the surgical site that is adherent without drainage. Pulses: RLE: DP, PT Biphasic, AT monophasic, Popliteal pulses non palpable, femoral pulse +1 LLE: Biphasic DP, Monophasic PT, AT, Popliteal non palpable, femoral pulse +1 Skin: Skin color, texture, turgor normal. No rashes. Neuro: Alert and oriented x3. Speech clear and appropriate. Mood and Affect: Pleasant and appropriate Imaging and other Diagnostics: 08/20/2019 [place] [facility] showed: Right Posterior tibialis- Noncompressible Dorsalis pedis- Noncompressible Digit 0.54 Left Posterior tibialis- Noncompressible Dorsalis pedis- 0.71 Digit 0.60 Impression: Doppler waveforms are monophasic in all distributions Assessment: 1. PAD (peripheral artery disease) Plan: Geovanni Bal is presents today for reevaluation of his known PAD. He reports that he is doing well. He denies any new claudication or rest pain in his bilateral lower extremities. He denies any new wounds or open areas of concern. His peripheral arterial disease has remained stable. He had SERGIO's/TBI's prior to his office visit today. His Right SERGIO is noncompressible and the Left SERGIO is 0.71. The Right TBI is 0.54, and the Left TBI is 0.60 indicating distal small vessel disease. His SERGIO's remain stable and his TBI's are improvedfrom prior study in July 2018. We will follow up with Geovanni in 6 months for surveillance as part of the BEST CL Trial. He was instructed to call with any concerns. MEERA Peña Date: 08/22/2019 Time: 10:38 AM 10: 40 AM ESTdocumented in this encounter Plan of Treatment Health Maintenance Due Date Last Done Comments Hepatitis C Screening (B. 1950 [id number]) MMR Vaccines (1 of 1 - 1951 Standard series) Varicella Vaccines (1 of 2 - 1951 2-dose childhood series) DTaP,Tdap,and Td Vaccines (1 1955 - Tdap) Diabetic Foot Exam 1966 Dilated Retinal Exam 1966 Urine Microalbumin 1966 Hepatitis B Vaccines (1 of 3 1967 - Risk 3-dose series) Colon Cancer Screening 10 yrs 1998 Zoster Vaccines (1 of 2) 1998 Pneumococcal Vaccine: 65+ 2013 Years (1 of 2 - PCV13) Hemoglobin A1c 10/07/2017 04/09/2017, 08/26/2015 Lipid Disorder Screening 04/09/2018 04/09/2017 Influenza Vaccine 04/22/2019 HIB Vaccines Aged Out No longer eligible based on patient's age to complete this topic Hepatitis A Vaccines Aged Out No longer eligible based on patient's age to complete this topic IPV Vaccines Aged Out No longer eligible based on patient's age to complete this topic Pneumococcal Vaccine: Aged Out No longer eligible based Pediatrics (0 to 5 Years) and on patient's age to At-Risk Patients (6 to 64 complete this topic Years) documented as of this encounter Implants Implanted Type Area Plug Assembler Device Shelf Model / Identifier Expiration Serial / Date Lot Deuce Arandacllacey Se - [id number] Right: [facility] [id number] / Implanted: Qty: 1 on 07/28/2015 by Laura Ortega MD at OR [facility] Groin SUPPLY / [id number] documented as of this encounter Results Not on filedocumented in this encounter Visit Diagnoses Diagnosis PAD (peripheral artery disease) - Primary Peripheral vascular disease, unspecified documented in this encounter
[2019-08-25 09:49] VITALS: BP 135/61
--- NOTE | 2019-08-25 10:30 | UC ---
Minor Trauma HPI - HPI Summary HPI Summary: The patient is a 69-year-old male who slipped and fell on ice 5 days ago. He has right thoracic back pain as well as right lateral chest pain. He denies any shortness of breath. He denies any other injury. He has been taking Tylenol. - History of Current Complaint Chief Complaint: UCBackPain Stated Complaint: BACK PAIN Time Seen by Provider: 08/25/19 10:23 Hx Obtained From: Patient Onset/Duration: Gradual Onset, Lasting Days Onset Of Pain: Immediate Severity Initially: Moderate Severity Currently: Moderate Pain Intensity: 7 Pain Scale Used: Adult Non Verbal Mechanism Of Injury: Fall From A Standing Position Aggravating Factor(s): Coughing, Deep Breaths, Movement Alleviating Factor(s): Nothing Associated Signs And Symptoms: Negative: Loss Of Consciousness, Ecchymosis Body - Head: 1 - tender 2 - tender - Allergies/Home Medications Allergies/Adverse Reactions: Allergies Allergy/AdvReac Type Severity Reaction Status Date / Time No Known Allergies Allergy Verified 08/25/19 09:41 Home Medications: Home Medications Aspirin 81 mg CHEW TAB* [Aspirin Low Dose TAB*] 81 mg PO DAILY 08/25/19 [ History Confirmed 08/25/19] Atorvastatin* [Lipitor*] 40 mg PO DAILY 08/25/19 [History Confirmed 08/25/19] PMH/Surg Hx/FS Hx/Imm Hx Previously Healthy: Yes Endocrine History: Diabetes, Dyslipidemia Cardiovascular History: Cardiac Disease, Hypertension - Surgical History Surgical History: Yes Surgery Procedure, Year, and Place: CARDIAC STENTS - 07/2017. FEMORAL BYPASS - ANGIOGRAM - NO STENTS PLACED -OP REPORT IN EMR. Rt SHOULDER - REPAIR. L leg surgery. 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 - Family History Known Family History: Positive: Hypertension, Diabetes - Social History Alcohol Use: None Substance Use Type: None Smoking Status (MU): Never Smoked Tobacco Review of Systems All Other Systems Reviewed And Are Negative: Yes Constitutional: Positive: Negative Skin: Positive: Negative Eyes: Positive: Negative ENT: Positive: Negative Respiratory: Positive: Negative Cardiovascular: Positive: Chest Pain - right latral Gastrointestinal: Positive: Negative Genitourinary: Positive: Negative Motor: Positive: Negative Neurovascular: Positive: Negative Musculoskeletal: Positive: Negative Neurological: Positive: Negative Psychological: Positive: Negative - Serafin Bite the Physical Exam Triage Information Reviewed: Yes Appearance: Well-Appearing, No Pain Distress, Well-Nourished Vital Signs: Initial Vital Signs Temp 97.4 F 08/25/19 09:43 Pulse 59 08/25/19 09:43 Resp 20 08/25/19 09:43 BP 135/61 08/25/19 09:43 Pulse Ox 99 08/25/19 09:43 Vital Signs Reviewed: Yes Eyes: Positive: Conjunctiva Clear ENT: Positive: Hearing grossly normal, Uvula midline. Negative: Nasal congestion, Nasal drainage, Trismus, Muffled voice, Hoarse voice Dental Exam: Normal Neck: Positive: Supple, Nontender, No Lymphadenopathy Respiratory: Positive: Lungs clear, Normal breath sounds, No respiratory distress, No accessory muscle use. Negative: Chest non-tender Cardiovascular: Positive: RRR Abdomen Description: Positive: Nontender, No Organomegaly, Soft. Negative: CVA Tenderness (R), CVA Tenderness (L) Bowel Sounds: Positive: Present Musculoskeletal: Positive: No Edema Neurological: Positive: Alert Psychological Exam: Normal Skin Exam: Normal Diagnostics - Laboratory Lab Results: UA ++ protein - Radiology No standard instances Radiology Interpretation Completed By: Radiologist Summary of Radiographic Findings: no rib fx or ptx noted Minor Trauma Course/Dx - Differential Dx/Diagnosis Provider Diagnosis: Contusion of rib on right side Discharge ED - Sign-Out/Discharge Documenting (check all that apply): Patient Departure All imaging exams completed and their final reports reviewed: No Studies - Discharge Plan Condition: Stable Disposition: HOME Patient Education Materials: Rib Contusion (ED) Referrals: Micki Villalta MD [Primary Care Provider] - 2 Weeks Additional Instructions: tylenol we saw no rib fracture no blood in urine see your MD in 2 weeks if not better - Billing Disposition and Condition Condition: STABLE Disposition: Home
== END 2019-08-25 11:40 | disposition home or self-care (01) ==
LOC: UCEAST 09:19
DX: S20.211A Contusion of right front wall of thorax, initial encounter (principal); E11.9 Type 2 diabetes mellitus without complications; I10 Essential (primary) hypertension; E78.5 Hyperlipidemia, unspecified; Z79.899 Other long term (current) drug therapy; Z79.82 Long term (current) use of aspirin; W01.0XXA Fall on same level from slipping, tripping and stumbling without subsequent striking against object, initial encounter; Y92.9 Unspecified place or not applicable
CPT/HCPCS: 81003; 99211; G0463